=== PATIENT | female | born 1970 | race Two or more races ===

== ENCOUNTER 2024-09-11 11:12 | Emergency (ER) | payer OTHER ==
[~2024-09-11] VITALS: Ht 160 cm; Wt 100.2 kg
[2024-09-11 12:08] VITALS: BP 133/69; O2SAT 98
[2024-09-11] MEDS ORDERED: ORPHENADRINE CITRATE 30 MG/ML AMPUL IM ONE (12:45)
[2024-09-11] MEDS ORDERED: KETOROLAC TROMETHAMINE 60 MG VIAL IM ONE (12:45)
[2024-09-11] MEDS ORDERED: MEDROLPACK PO (14:57)
== END 2024-09-11 15:02 | disposition home or self-care (01) ==
LOC: ER 11:14
DX: M25.561 Pain in right knee (principal); M17.11 Unilateral primary osteoarthritis, right knee
CPT/HCPCS: 73560; 96372; 99283; J1885; J2360